=== PATIENT | male | born 1995 | race Caucasian/White ===

== ENCOUNTER 2018-09-15 18:04 | Emergency (ER) | payer OTHER, SELFPAY ==
[2018-09-15 18:10] VITALS: BP 144/74; PULSE 74; RESP 16; TEMP 37; O2SAT 100
--- NOTE | 2018-09-15 18:10 | ED.GENADUL_ITS ---
Discharge Plan Disposition Patient Disposition: HOME Condition: Good Discharge Details Chief Complaint: Orthopedic Clinical Impression: Chest wall pain Primary Care Provider: None,None ED Provider: Ruslan George Home Meds and New Rx's Prescriptions: No Action No Known Home Meds RF: 0 Discharge Instructions Instructions: Chest Wall Pain (ED) Additional Instructions: Your pain seems to be related to the pectoralis muscle and chest wall pain. Vital signs are good. Your lungs are clear. Suspect a few days of ibuprofen will help take care of the pain. You should follow-up with a primary care doctor in a couple weeks if it does not seem to be getting better. Care management will help you with getting a PCP. Return to the ED if you develop fever, shortness of breath, new or worsening pain. [facility] [[facility]] Medical Decision Making Patient with what appears to be chest wall pain. Pain is definitely worse with movement especially active movement involving the left shoulder. It is reproducible with palpation in the left upper chest toward the insertion of the pectoralis muscle into the shoulder. Lungs are clear. Oxygenation is 100%. He is only 23 and has no risk factors for cardiac disease. He is PERC negative. I do not feel that imaging, laboratory studies or workup is necessary as it definitely appears to be chest wall pain in nature. There are no associated symptoms with it. We will have him use ibuprofen over the next few days and see how he does. I will have care management help with obtaining primary care provider. Patient asked to return if he develops fever, shortness of breath, new or worsening pain, any other concerns. HPI General Mode of arrival: ambulatory . Date/Time Provider Initiated Documentation: 09/15/18 18:08 . Limitations to Documentation: no limitations . Information obtained by: patient . HPI Narrative: Patient presents to ED with left upper chest pain for the last couple of days. He has recovered from what sounds like left proximal bicep tendinitis just recently. The pain he is having now feels different but is in that same general location just more into the chest more than shoulder. He denies any new injury. Pain does not radiate anywhere. It is definitely worse with movement and somewhat with breathing. He does not feel short of breath. He has no fever. He has a chronic cough which is unchanged. He denies any neurologic symptomatology. He denies any rash. Related Data Home Medications Medication Instructions Recorded Confirmed Unknown [No Known Home Meds] 09/16/16 09/15/18 Allergies Allergy/AdvReac Type Severity Reaction Status Date / Time No Known Allergies Allergy Unverified 09/15/18 18:15 Review of Systems Constitutional Denies chills, Denies fever(s), Denies malaise and Denies weakness ENT Denies otalgia, Denies facial pain, Denies nasal congestion, Denies nasal discharge and Denies sinus pain Cardiovascular Reports chest pain, Denies diaphoresis, Denies syncope, Denies edema, Denies lightheadedness, Denies radiating jaw, neck or arm pain and Denies dyspnea Respiratory Denies chest congestion, Denies cough and Denies dyspnea Musculoskeletal Denies back pain, Denies myalgias and Denies numbness Integumentary/Breasts Denies rash Neurologic Denies syncope, Denies focal weakness, Denies numbness, Denies radicular pain and Denies weakness PFSH Social History Smoking and Tabacco status: Never Exam Const General: cooperative, comfortable and no acute distress Orientation: alert and oriented x3 [facility] Head: normocephalic and atraumatic Neck Neck: full ROM, trachea midline and supple Chest Chest: tenderness pectoral muscle (upper pectoral muscle up into shoulder insertion) on the left Resp Effort & Inspection: normal respiratory effort Auscultation: clear to auscultation bilaterally Cardio Rate: regular rate Rhythm: regular rhythm Heart Sounds: S1 normal and S2 normal Pulses: radial pulses present Neuro General: alert, oriented x3, no focal motor deficits and CN's II-XI intact bilaterally Cognition: normal cognition Speech: speech normal Gait: normal gait Sensory Exam: no sensory deficits noted Extrem General: normal exam except as noted Left upper extremity: shoulder/upper arm Details: tenderness (left upper pectoral muscle) and abnormal ROM Details: pain with active ROM and with range as follows (pretty much normal but with pain)
[2018-09-15] MEDS: Ibuprofen 600 MG TAB PO (18:20)
--- NOTE | 2018-09-16 08:32 | PDOC.ERCMPRO ---
Care Management Progress Note 09/16-Dr. George requested assistance with [facility] establishing primary care. No ED f/u needed. Ana Maria Pearl product demonstrator. Referral faxed to [facility] this am.
--- NOTE | 2018-09-16 08:33 | CMPROGNOTE_ITS ---
Care Management Progress Note 09/16-Dr. George requested assistance with [facility] establishing primary care. No ED f/u needed. Ana Maria Pearl secondary teacher. Referral faxed to [facility] this am.
== END 2018-09-15 18:30 | disposition home or self-care (01) ==
LOC: ER 18:31
PROVIDERS: Emergency Provider Emergency Medicine
DX: R07.81 Pleurodynia (principal)
CPT/HCPCS: 99282

== ENCOUNTER 2018-09-16 12:46 | Emergency (ER) | payer OTHER, SELFPAY ==
[2018-09-16 12:56] VITALS: BP 139/73; PULSE 59; RESP 16; TEMP 37.1; O2SAT 100
--- NOTE | 2018-09-16 13:13 | DI.RAD_ITS ---
SYMPTOMS/DIAGNOSIS: LT UPPER CHEST WALL PAIN PA AND LATERAL CHEST: The cardiac and mediastinal contours have a normal appearance. The lungs are well inflated and clear. No pneumothorax or rib fracture is seen. The thoracic spine and sternum appear intact. IMPRESSION: Negative chest x-ray.
[2018-09-16] MEDS: Ketorolac 30 MG/ML VIAL 15 MG IVP (13:15)
[2018-09-16] MEDS: Lidocaine 5% Patch 1 PATCH TP (13:15)
--- NOTE | 2018-09-16 13:17 | W.ED.GENAD ---
Discharge Plan Disposition Patient Disposition: HOME Condition: Good Discharge Details Chief Complaint: Chest Pain Clinical Impression: Muscle strain Primary Care Provider: None,None ED Provider: Jose Moran Home Meds and New Rx's Prescriptions: No Action No Known Home Meds RF: 0 Discharge Instructions Instructions: Muscle Strain (ED) Additional Instructions: Please take 800 mg of ibuprofen every 6 hours and 1000 mg of Tylenol every 6 hours. If you notice any worsening of your symptoms, or any new symptoms such as vomiting, diarrhea, fever, chills, shortness of breath, chest pain, numbness, weakness, or fainting , please return immediately to the emergency department for reevaluation. Please follow up with your primary care provider as soon as possible for reassessment and reevaluation. As always, it was a pleasure participating in your medical care today. Medical Decision Making This is a 23-year-old male who presents for evaluation of chest pain. He was seen and assessed here last night given a diagnosis of musculoskeletal chest pain at that time. The patient's pain continues, he is not taking his Tylenol or Motrin as directed. Physical exam demonstrates notable reproducible pain palpation of the pectoralis major minor muscles, no clinical evidence of a cardiac etiology on EKG or history. Symptoms are notably made worse with movement, the pain appears to be musculoskeletal. Limited portable bedside ultrasound demonstrates excellent cardiac contractility, no signs of pericardial effusion. I still feel that the patient signs and symptoms are consistent with musculoskeletal chest pain. We will give Toradol, Lidoderm patch, a chest x-ray to evaluate for any other atypical acute process, and I feel that the patient can be discharged home. With a benign EKG, no other significant abnormalities, feel that no additional workup is indicated at this time. 1:45 PM Chest x-ray has been reviewed and shows no evidence of acute process. EKG is benign. Bedside ultrasound shows no significant abnormality. With Lidoderm patch and Toradol the patient is feeling much better. I feel the signs and symptoms are clinically consistent with a musculoskeletal process and inconsistent with ACS, dissection, PE, pneumothorax, or severe rib fracture. With reassuring vital signs, benign appearing exam, I feel he can be safely discharged home with instructions for Tylenol Motrin I have extensively reviewed the treatment plan and discharge instructions with the patient and their family. I have addressed all patient concerns at this time. The patient and family was made aware of what symptoms to monitor for that would warrant a return to the emergency department. Discussed the plan with the patient and family, they demonstrate verbal understanding and agreement with our assessment and plan at this time. . EKG 12: 53 Rate 60, intervals normal, sinus rhythm, J-point elevation in V3 V4 and V5, all less than [address] depression. No T wave inversion. No S1, Q 3, T3, no epsilon wave, delta wave, or other significant abnormality. RSR prime in V1, normal EKG for age HPI General Date/Time Provider Initiated Documentation: 09/16/18 13:02. HPI Narrative: This is a 23-year-old male with past medical history of occasional marijuana use, who presents for evaluation of chest pain. The patient was here yesterday with complaint of chest pain that occurred while he was doing activity at work. His symptoms are worse with movement, particular worse with movement of his left anterior chest wall and arm. He was seen and evaluated here last night and physical exam at that time was clinically consistent with musculoskeletal issue. Today the patient presents again with same symptoms, he has not been taking his Tylenol or Motrin. He does state that it is the same as yesterday, but his girlfriend recommended he come in to get checked out. He denies any shortness of breath, pleuritic chest pain, vomiting, diarrhea, neck pain numbness tingling or weakness. Symptoms are not changed by leaning forward or lying back. He denies any family history of cardiac disease at a young age or sudden . Denies PE risk factors such as recent long car rides, immobilization, recent surgery, prior history of DVT or PE, family history of PE or DVT, morbid obesity, exogenous estrogen and smoking, hemoptysis, history of cancer. He denies any IV or illicit drug use. He does admit to occasional marijuana use. Related Data Home Medications Medication Instructions Recorded Confirmed Unknown [No Known Home Meds] 09/16/16 09/16/18 Allergies Allergy/AdvReac Type Severity Reaction Status Date / Time No Known Allergies Allergy Unverified 09/16/18 12:59 General Stated Complaint: Chest Pain TRICIA: 2 Review of Systems Review of Systems All systems reviewed & are unremarkable except as noted in HPI and below PFSH Social History Smoking and Tabacco status: Never Exam Narrative Exam Narrative: 1.Const: Well-nourished, Well-developed, appearing stated age 2.Eyes: PERRL, no conjunctival injection, and symmetrical lids. 3.ENT: Atraumatic external nose and ears. Moist MM. Neck: Symmetric, trachea midline, No thyromegaly. 4.CVS: +S1/S2, No murmurs or gallops. Peripheral pulses 2+ and equal in all extremities. Brisk capillary refill in all extremities. 5.RESP: Unlabored respiratory effort. Clear to auscultation bilaterally. No wheezes rales or rhonchi 6.GI: Soft, Nontender/Nondistended, No hepatosplenomegaly. No guarding or rebound. 7.MSK: Normocephalic/Atraumatic, Extremities w/o deformity. No cyanosis or clubbing, Normal movement of all extremities. Notable reproducibility of pain with palpation of pectoralis major minor muscle, pain and symptoms worsen with movement utilizing these muscles. No evidence of rib subluxation. 8.Skin: Warm, Dry. No rashes or lesions. 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 Sensation grossly intact, no focal neurologic deficits. 10.Psych: (AAO) x3. Appropriate mood and affect Course Vital Signs Temperature 37.1 C 09/16/18 12:56 Pulse 59 L 09/16/18 12:56 Respiratory Rate 16 09/16/18 12:56 Blood Pressure 139/73 09/16/18 12:56 Pulse Oximetry 100 09/16/18 12:56 Temperature 37.1 C 09/16/18 12:56 Temperature Source Skin 09/16/18 12:56 Pulse 59 L 09/16/18 12:56 Respiratory Rate 16 09/16/18 12:56 Respiratory Effort Non-Labored 09/16/18 12:56 Blood Pressure 139/73 09/16/18 12:56 Blood Pressure Position Supine 09/16/18 12:56 Pulse Oximetry 100 09/16/18 12:56 Oxygen Delivery Method Room Air 09/16/18 12:56 Oxygen Flow Rate 0 09/16/18 12:56 Pain Level 6 09/16/18 12:56
[2018-09-16 13:33] VITALS: RESP 16
[2018-09-16 13:35] VITALS: BP 120/73; PULSE 54; PULSE 56; RESP 16; O2SAT 100
[2018-09-16 13:36] VITALS: PULSE 57; RESP 15; O2SAT 100
[2018-09-16 13:40] VITALS: PULSE 56; RESP 17; O2SAT 99
[2018-09-16 14:00] VITALS: BP 120/73; PULSE 54; RESP 17; TEMP 37.1; O2SAT 99
== END 2018-09-16 14:02 | disposition home or self-care (01) ==
PROVIDERS: Emergency Provider Student in an Organized Health Care Education/Training Program
DX: M62.838 Other muscle spasm (principal)
CPT/HCPCS: 36415; 93005; 96374; 99285; 71046; 93010; J1885

== ENCOUNTER 2019-07-09 00:54 | Emergency (ER) | payer SELFPAY ==
[2019-07-09 00:58] VITALS: BP 141/74; PULSE 61; RESP 16; TEMP 36.2; O2SAT 100
--- NOTE | 2019-07-09 01:09 | ED.GENADUL_ITS ---
Discharge Plan Disposition Patient Disposition: HOME Condition: Stable Discharge Details Chief Complaint: Orthopedic Clinical Impression: Left wrist sprain Primary Care Provider: Oliver Renner ED Provider: Sanjay Herrera Home Meds and New Rx's Prescriptions: No Action No Known Home Meds RF: 0 Discharge Instructions Instructions: Wrist Sprain (ED) Medical Decision Making 23 yo male comes in with left wrist pain. HE states he has had left wrist soreness for a month or so and felt it was due to the heavy lifting at work. 3 days ago he slipped on ice from standing and landed on his left wrist, did not hit head or have loc. Denies headache, neck pain, chest pain, abd pain. Has pain on ulnar surface of left wrist without swelling and full rom and intact sensation and pulses and full rom of the hand. Suspect sprain vs contusion but given trauma will xray to eval for fx. No snuffbox tenderness so doubt scaphoid fx xray on my read shows no acute findings. Will place in universal wrist splint for comfort and advised to see pcp if still in pain in a week and return precautions given Differential Diagnosis Differential Diagnosis: sprain, tendonitis, fx Imaging Data Radiologic Study: Attestation: I personally reviewed and interpreted this imaging study as follows: Imaging: X-Ray My impression: no acute findings HPI General Mode of arrival: ambulatory . Date/Time Provider Initiated Documentation: 07/09/19 01:01 . Limitations to Documentation: no limitations . Information obtained by: patient . History of Present Illness 23 year old M presents to the emergency department with the chief complaint of left wrist pain, described as moderate, Quality is described as aching, and is locali zed to the left and upper extremity. Patient reports no radiation. Patient started experiencing this hour(s) (3) and it has been constant. Rest improves symptom(s), Patient notes no other symptoms.. Patient did receive the following treatments prior to arrival, none Related Data Home Medications Medication Instructions Recorded Confirmed Unknown [No Known Home Meds] 09/16/16 07/09/19 Allergies Allergy/AdvReac Type Severity Reaction Status Date / Time No Known Allergies Allergy Verified 07/09/19 01:02 General Stated Complaint: Orthopedic TRICIA: 4 Review of Systems All systems reviewed & are unremarkable except as noted in HPI and below Constitutional Constitutional: Denies chills and Denies fever(s) Cardiovascular Cardiovascular: Denies chest pain and Denies dyspnea Respiratory Respiratory: Denies cough and Denies dyspnea Gastrointestinal Gastrointestinal: Denies abdominal pain, Denies nausea and Denies vomiting Musculoskeletal Musculoskeletal: Denies joint swelling Integumentary/Breasts Skin/Breast: Denies rash PFSH Family History (Updated 11/09/18 @ 15:23 by Mary Chua RN) Mother Heart disease Maternal Grandfather Heart disease Diabetes Social History (Updated 11/09/18 @ 15:21 by Mary Chua RN) Smoking/Tobacco Use Status: Never Smokeless tobacco user: other Second Hand Exposure: Yes (mother smokes) Alcohol Intake: current Alcohol Intake frequency: a few times a month Alcohol type: beer Drug use: Occasionally Substance use type: marijuana Household members: family Education Level: high school current occupation: talking to [employer] Pets and animals: Yes Pets and animals: cat(s) and dog(s) Sexually active: Yes Do you think of yourself as: straight/heterosexual Current gender identity: male What type of physical activity do you participate in: other Details: bowling and physically active at work Ruth/Latter-Day: none Special ruth needs: No Seatbelt use: always Helmet use: Yes Helmet use: always Drive intox or ride w/intox sulky driver: No Water heater temp set <120 deg: Yes Working smoke detector in home: Yes Fire extinguisher in home: Yes Carbon monox detector in home: Yes Firearms in home: No Do you feel safe at home: Yes Do you feel safe in your relationship?: Yes Exam Const General: no acute distress Orientation: alert HENMT Head: normal to inspection Ears: external ears normal General nose exam: external nose normal Mouth: moist mucous membranes Eyes General: appearance normal, both eyes and all related structures Neck Neck: normal visual inspection Resp Effort & Inspection: normal respiratory effort and able to speak in complete sentences Cardio Rate: regular rate Skin General skin exam: no rashes or lesions noted Neuro General: alert and oriented x3 Extrem General: normal to inspection, full ROM and normal capillary refill Psych Mental Status: mental status grossly normal Course Vital Signs Vital signs: Vital Signs Temperature 36.2 C L 07/09/19 00:58 Pulse 61 07/09/19 00:58 Respiratory Rate 16 07/09/19 00:58 Blood Pressure 141/74 H 07/09/19 00:58 Pulse Oximetry 100 07/09/19 00:58 Temperature 36.2 C L 07/09/19 00:58 Temperature Source Temporal Artery Scan 07/09/19 00:58 Pulse 61 07/09/19 00:58 Respiratory Rate 16 07/09/19 00:58 Respiratory Effort 07/09/19 00:58 Blood Pressure 141/74 H 07/09/19 00:58 Blood Pressure Position Sitting 07/09/19 00:58 Pulse Oximetry 100 07/09/19 00:58 Oxygen Delivery Method Room Air 07/09/19 00:58 Oxygen Flow Rate 0 07/09/19 00:58 Pain Level 4 07/09/19 01:02
--- NOTE | 2019-07-09 01:12 | DI.RAD_ITS ---
EXAM: XR WRIST LT COMPLETE CLINICAL HISTORY: pain s/p fall. TECHNIQUE: 2D digital imaging was performed. COMPARISON: No exams were available for comparison FINDINGS: BONES: No acute fracture is present. No bony destructive lesion is seen. JOINTS: The carpal bones are normally aligned. SOFT TISSUE: Normal. IMPRESSION: Unremarkable radiographs of the left wrist.
--- NOTE | 2019-07-09 01:28 | DI.VRAD_ITS ---
PROCEDURE INFORMATION: Exam: XR Left Wrist Exam date and time: 07/09/2019 1:10 AM Age: 23 years old Clinical indication: Injury or trauma; Fall; Initial encounter; Blunt trauma (contusions or hematomas; Wrist; Left; Injury date: 07/08/2019; Injury details: Foosh on ice TECHNIQUE: Imaging protocol: XR Left wrist. Views: 3 or more views. COMPARISON: CR LEFT WRIST COMPLETE 09/16/2016 3:00 PM FINDINGS: Bones/joints: Normal. Soft tissues: Normal. IMPRESSION: No acute findings. Dictated and Authenticated by: Jak Quintero MD. Ordering:TED Grace MD
== END 2019-07-09 01:30 | disposition home or self-care (01) ==
PROVIDERS: Emergency Provider Emergency Medicine; PCP Family Medicine
DX: S63.302A Traumatic rupture of unspecified ligament of left wrist, initial encounter (principal); W00.0XXA Fall on same level due to ice and snow, initial encounter
CPT/HCPCS: 29125; 99283; 73110; L3908

== ENCOUNTER 2019-08-30 17:38 | Emergency (ER) | payer OTHER, SELFPAY ==
[2019-08-30 17:48] VITALS: BP 150/78; PULSE 74; TEMP 36.7; O2SAT 100
--- NOTE | 2019-08-30 18:07 | ED.GENADUL_ITS ---
Discharge Plan Disposition Patient Disposition: HOME Condition: Good Discharge Details Chief Complaint: Orthopedic Clinical Impression: Ankle contusion Primary Care Provider: Oliver Renner ED Provider: Yvrose Newton Home Meds and New Rx's Prescriptions: No Action No Known Home Meds RF: 0 Discharge Instructions Instructions: Contusion in Adults (ED) Additional Instructions: Encourage rest, ice, elevation. Tylenol and/or ibuprofen as needed for discomfort. Please follow-up with primary care in 1 to 2 weeks if not improving. If he develop new or worsening symptoms please seek care urgently once again. Please continue with brace will pain persist. Referrals: Oliver Renner DO [Primary Care Provider] - Medical Decision Making Patient is a pleasant 31-year-old male presenting today with chief complaint of left ankle pain. He reports his pain began approximately 1 week ago after a large hopper fell on the anterior aspect of his foot. He reports that the hopper was being supported by a forklift and slid off of the forklift landing on to the top of his boot. Patient was wearing a steel toe boot and states that this did cause damage to his shoe. States that the Hopper then slid backwards and hit the anterior aspect of his left ankle. Reports some discomfort initially but reports no pain until last night when he was bowling. Since that time, he has been having pain primarily over the medial and lateral aspect between the malleoli and the Achilles. He has no pain over the Achilles tendon, normal Valentin test. No pain with palpation or squeezing of the calcaneus. He is ligamentously intact. Normal foot exam. Patient does report that he had injury to the growth plate on the side and he was a child but otherwise no previous surgeries or injuries. FINDINGS: Bones/joints: Normal. Soft tissues: Normal. IMPRESSION: No acute findings. Discussed these findings with the patient. The area where he is having discomfort is not over. Suggestive of ligamentous injury. Advised likely marian stevens. Encourage rest, ice, elevation. Tylenol and ibuprofen as needed for discomfort. Encourage follow-up with primary care in the next 1 to 2 weeks if pain is not improving. Was given return precautions. All questions and concerns were addressed and is agreement this plan. Patient was fitted with a lace up ankle brace to help with discomfort. HPI General Mode of arrival: ambulatory . Date/Time Provider Initiated Documentation: 08/30/19 18:07 . Limitations to Documentation: no limitations . Information obtained by: patient, family and RN notes reviewed . History of Present Illness 23 year old M presents to the emergency department with the chief complaint of left ankle pain, described as moderate, with intensity rated at 6. Quality is described as aching, and is localized to the left and lower extremity. Patient reports no radiation. Patient started experiencing this week(s) (1) and it has been intermittent. Movement worsens symptoms (first noted pain last night while bowling) . Patient notes no other symptoms.. Patient did receive the following treatments prior to arrival, none Related Data Home Medications Medication Instructions Recorded Confirmed Unknown [No Known Home Meds] 09/16/16 08/30/19 Allergies Allergy/AdvReac Type Severity Reaction Status Date / Time No Known Allergies Allergy Verified 08/30/19 17:54 General Stated Complaint: Orthopedic TRICIA: 4 Review of Systems Constitutional Constitutional: Reports as per HPI, Denies chills, Denies fever(s), Denies headache(s) and Denies weakness ENT Ears, Nose, Mouth, and Throat: Denies headache(s) Cardiovascular Cardiovascular: Reports as per HPI Respiratory Respiratory: Reports as per HPI and Denies cough Musculoskeletal Musculoskeletal: Reports as per HPI and Denies tingling Integumentary/Breasts Skin/Breast: Reports as per HPI, Denies rash and Denies wounds Neurologic Neurologic: Reports as per HPI, Denies headache(s), Denies tingling, Denies paresthesias and Denies weakness PFSH Family History (Updated 11/09/18 @ 15:23 by Mary Chua RN) Mother Heart disease Maternal Grandfather Heart disease Diabetes Social History (Updated 11/09/18 @ 15:21 by Mary Chua RN) Smoking/Tobacco Use Status: Never Smokeless tobacco user: other Second Hand Exposure: Yes (mother smokes) Alcohol Intake: current Alcohol Intake frequency: a few times a month Alcohol type: beer Drug use: Occasionally Substance use type: marijuana Household members: family Education Level: high school current occupation: talking to [employer] Pets and animals: Yes Pets and animals: cat(s) and dog(s) Sexually active: Yes Do you think of yourself as: straight/heterosexual Current gender identity: male What type of physical activity do you participate in: other Details: bowling and physically active at work Ruth/Alevism: none Special ruth needs: No Seatbelt use: always Helmet use: Yes Helmet use: always Drive intox or ride w/intox uke driver: No Water heater temp set <120 deg: Yes Working smoke detector in home: Yes Fire extinguisher in home: Yes Carbon monox detector in home: Yes Firearms in home: No Do you feel safe at home: Yes Do you feel safe in your relationship?: Yes Exam Const General: cooperative, healthy appearing, comfortable, no acute distress, well developed and well groomed Nutritional Appearance: average body habitus and well nourished Orientation: alert and awake Resp Effort & Inspection: normal respiratory effort, able to speak in complete sentences and no respiratory distress Cardio Rate: regular rate Rhythm: regular rhythm Skin General skin exam: no rashes or lesions noted Lesions: no lesions Rashes: no rashes Trauma: no lacerations or abrasions Neuro General: alert and awake Cognition: normal cognition Speech: speech normal Gait: normal gait Motor: muscle tone normal throughout Sensory Exam: no sensory deficits noted Extrem General: normal to inspection, full ROM, normal capillary refill, no joint enlargement, no clubbing, cyanosis or edema, no pedal edema, no calf tenderness and normal gait Left lower extremity: normal to inspection, full ROM, normal capillary refill, no joint enlargement, knee Details: normal to inspection, lower leg Details: normal to inspection (no pain over proximal fibula), ankle Details: normal to inspection, tenderness, no edema and normal ROM; no swelling, no warmth, no abrasions, no lacerations, no ecchymosis, no crepitus, no foreign bodies, no penetrating wound and achilles tendon exam normal and foot Details: normal capillary refill, toes with normal ROM, no edema and vascular exam Details: dorsalis pedis pulse present, posterior tibial pulse present and normal capillar y refill; no tenderness, no unusual warmth, no edema, no lacerations, no ecchymosis and no crepitus Ankle/foot/toe images: 1. area of discomfort. No pain or deformity over Achilles,no pain over lateral malleolus. discomfort is elicited with palpation between these areas. No swelling, erythema, warmth, drainage. No notable trauma. No pain over the talus. Full ROM, ligamentously intact. Normal foot exam with 2+ distal pulses. No pain with squeeze of foot, no pain over proximal 5th metatarsal. Psych Appearance: grossly normal and well kempt Mental Status: mental status grossly normal Speech and Movement: speech and movement normal Course Vital Signs Vital signs: Vital Signs Temperature 36.7 C 08/30/19 17:48 Pulse 74 08/30/19 17:48 Blood Pressure 150/78 H 08/30/19 17:48 Pulse Oximetry 100 08/30/19 17:48 Temperature 36.7 C 08/30/19 17:48 Temperature Source Skin 08/30/19 17:48 Pulse 74 08/30/19 17:48 Respiratory Effort Non-Labored 08/30/19 17:54 Blood Pressure 150/78 H 08/30/19 17:48 Blood Pressure Position Sitting 08/30/19 17:48 Pulse Oximetry 100 08/30/19 17:48 Oxygen Delivery Method Room Air 08/30/19 17:48 Oxygen Flow Rate 0 08/30/19 17:48 Pain Level 6 08/30/19 17:48
--- NOTE | 2019-08-30 18:43 | DI.RAD_ITS ---
EXAM: XR ANKLE LT COMPLETE INDICATION: struck anteriorly, pain is posterior. COMPARISON: LEFT ANKLE COMPLETE from 02/10/2017 TECHNIQUE: 2D digital imaging was performed. FINDINGS: No fracture or ankle mortise widening is seen. No talar dome defect is visible. IMPRESSION: Negative left ankle.
--- NOTE | 2019-08-30 18:55 | DI.VRAD_ITS ---
PROCEDURE INFORMATION: Exam: XR Left Ankle Exam date and time: 08/30/2019 6:44 PM Age: 23 years old Clinical indication: Injury or trauma; Injury history: PT states wood rolled up on to ptsankle; Work related; Initial encounter; Sprain or strain; Left; Injury date: 08/30/2010 TECHNIQUE: Imaging protocol: XR Left ankle. Views: 3 or more views. COMPARISON: CR LEFT ANKLE COMPLETE 02/10/2017 3:42 PM FINDINGS: Bones/joints: Normal. Soft tissues: Normal. IMPRESSION: No acute findings. Dictated and Authenticated by: Jak Quintero MD. Ordering:NA Frances MD
[2019-08-30 19:18] VITALS: BP 150/78; PULSE 74; TEMP 36.7; O2SAT 100
== END 2019-08-30 19:15 | disposition home or self-care (01) ==
PROVIDERS: Emergency Provider Physician Assistant; PCP Family Medicine
DX: S90.02XA Contusion of left ankle, initial encounter (principal); W20.8XXA Other cause of strike by thrown, projected or falling object, initial encounter; Y99.0 Civilian activity done for income or pay
CPT/HCPCS: 29515; 99283; 73610; L1902

== ENCOUNTER 2019-11-12 11:57 | Emergency (ER) | payer OTHER, SELFPAY ==
[2019-11-12 12:03] VITALS: BP 129/83; PULSE 83; RESP 14; TEMP 37.3; O2SAT 100
--- NOTE | 2019-11-12 12:12 | ED.GENADUL_ITS ---
Discharge Plan Disposition Patient Disposition: HOME Condition: Improving Discharge Details Chief Complaint: Trauma Clinical Impression: Acute frontal sinusitis Primary Care Provider: Oliver Renner ED Provider: Marc Valdez Home Meds and New Rx's Prescriptions: New amoxicillin-pot clavulanate 875-125 mg tablet 1 tab PO BID 9 Days Qty: 18 RF: 0 Discharge Instructions Instructions: Sinusitis (ED), Syncope (ED) Additional Instructions: Home to rest today. Please take Augmentin as prescribed for its entire course. I recommend you take an [id number]-yugdtbd probiotic or live culture yogurt once daily during the middle of the day while on the antibiotic. Tylenol and/or ibuprofen as needed for pain. Salt water gargle and spit for your intraoral abrasion. Return to the emergency department for any acute concerns. Medical Decision Making 24-year-old male presents from home. He was seated, having a haircut, when he felt flushed and nauseated, he was then witnessed to have a syncopal event which he fell forward struck his face on the floor. There was no seizure-like activity. He had no prolonged loss of consciousness, no incontinence. He regained normal level of consciousness, EMS was contacted, patient was transported to the ER in improved condition. He complains of right upper gum pain. His exam is reassuring. He has an abrasion over the nasal bridge without evidence of laceration nor underlying significant bony facial injury. He has a abrasion to the gumline but no loose teeth or intraoral lacerations. Differential gnosis is broad including vasovagal induced syncope. Patient had IV access established, was referred for laboratories, screening chest x-ray, EKG, CT scan of the cervical spine, facial bones and head. Laboratories, EKG, chest x-ray are reassuring. CT does not reveal any acute injury. There is evidence of bilateral sphenoid, ethmoid, left frontal sinus disease. Given the patient's recent headache and low-grade fever along with physical exam findings of distended left tympanic membrane, I do feel he has left frontal sinusitis. I will place him on a course of antibiotics. He is stable and improving. Lab Data Lab results reviewed: Yes I reviewed the patient's lab results. Labs: Laboratory Results - last 24 hr 11/12/19 11/12/19 12:25 12:25 WBC 4.68 RBC 5.39 Hgb 16.3 Hct 46.4 MCV 86.1 MCH 30.2 MCHC 35.1 RDW 12.8 Plt Count 114 L MPV 10.3 Immature Gran % 0.2 Neutrophils % 68.8 Lymphocytes % 14.5 Monocytes % 15.6 Eosinophils % 0.0 Basophils % 0.9 Absolute Neutrophils 3.22 Absolute Lymphocytes 0.68 L Absolute Monocytes 0.73 H Absolute Eosinophils 0.00 Absolute Basophils 0.04 Sodium 136 Potassium 3.8 Chloride 101 Carbon Dioxide 28.4 Anion Gap 6.6 BUN 18 Creatinine 1.16 Estimated GFR/1.73 m2 >= 60.00 Glucose 99 Calcium 8.8 Magnesium 1.9 Total Bilirubin 0.5 AST 30 ALT 36 Alkaline Phosphatase 50 Troponin I < 0.05 Total Protein 8.3 H Albumin 4.0 ECG Data Attestation: I personally reviewed and interpreted this ECG (s) as follows: Interpretation: Normal sinus rhythm with a rate of 84, QRS is narrow, there is no ST segment elevation, QTc 390. HPI General Mode of arrival: EMS . Date/Time Provider Initiated Documentation: 11/12/19 12:17 . Limitations to Documentation: no limitations . Information obtained by: patient and EMS . History of Present Illness 24 year old M presents to the emergency department with the chief complaint of Syncope at home, described as moderate, and is localized to the mouth. Patient reports no radiation. Patient started experiencing this minute(s) and it has been now resolved. No relieving factors improve symptom(s), No exacerbating factors reported . Patient notes syncope; denies confusion, chest pain, headaches, nausea/vomiting, seizure and shortness of breath. Patient did receive the following treatments prior to arrival, none Related Data Home Medications Medication Instructions Recorded Confirmed amoxicillin-pot clavulanate 1 tab PO BID 9 Days #18 tab 11/12/19 Previous Rx's Medication Instructions Recorded amoxicillin-pot clavulanate 1 tab PO BID 9 Days #18 tab 11/12/19 Allergies Allergy/AdvReac Type Severity Reaction Status Date / Time No Known Allergies Allergy Verified 11/12/19 12:11 General Stated Complaint: Trauma TRICIA: 3 Review of Systems Narrative: Reports temperature of 100.4 and headache yesterday, both improved today. No chest pain, cough, shortness of breath. No headache today. No sinus pain or pressure. [facility] Family History (Updated 11/09/18 @ 15:23 by Mary Chua RN) Mother Heart disease Maternal Grandfather Heart disease Diabetes Social History Smoking/Tobacco Use Status: Never Smokeless tobacco user: other Second Hand Exposure: Yes (mother smokes) Alcohol Intake: current Alcohol Intake frequency: a few times a month Alcohol type: beer Drug use: Occasionally Substance use type: marijuana Household members: family Education Level: high school current occupation: talking to [employer] Pets and animals: Yes Pets and animals: cat(s) and dog(s) Sexually active: Yes Do you think of yourself as: straight/heterosexual Current gender identity: male What type of physical activity do you participate in: other Details: bowling and physically active at work Ruth/Sikh: none Special ruth needs: No Seatbelt use: always Helmet use: Yes Helmet use: always Drive intox or ride w/intox driver medic: No Water heater temp set <120 deg: Yes Working smoke detector in home: Yes Fire extinguisher in home: Yes Carbon monox detector in home: Yes Firearms in home: No Do you feel safe at home: Yes Do you feel safe in your relationship?: Yes Exam Narrative Exam Narrative: GEN: awake, alert, oriented 3. Pleasant, well groomed, interactive. HEAD: Normocephalic, atraumatic ENT: Mucous membranes moist, oropharynx with small approximately 3 to 4 mm abrasion to gum above right central incisor, no loose teeth. No other intraoral lacerations. Left tympanic membrane slightly distended and erythematous, External ear exam unremarkable. Abrasion to the nasal bridge, no facial bone instability, no facial anesthesia. EYES: PERRL, EOMI NECK: Full ROM, no SHOAIB, no menigismus CHEST/RESP: Nontender, clear to auscultation bilateral, no wheeze/rhonchi/rales CARDIOVASCULAR: RRR, no murmur, rub nabeel. 2+ Rad pulse bilateral ABDOMEN: Soft, nontender, no mass. +Bowel sounds EXT: Full ROM, no edema, no rash Neuro: Grossly normal neurologic exam, conversant, interactive. Psych: Speech fluent, thoughts congruent, affect normal Course Vital Signs Vital signs: Vital Signs Temperature 37.3 C 11/12/19 12:03 Pulse 83 11/12/19 12:03 Respiratory Rate 14 11/12/19 12:03 Blood Pressure 129/83 11/12/19 12:03 Pulse Oximetry 100 11/12/19 12:03 Temperature 37.3 C 11/12/19 12:03 Temperature Source Oral 11/12/19 12:03 Pulse 83 11/12/19 12:03 Respiratory Rate 14 11/12/19 12:03 Respiratory Effort Non-Labored 11/12/19 12:10 Blood Pressure 129/83 11/12/19 12:03 Blood Pressure Position Supine 11/12/19 12:03 Pulse Oximetry 100 11/12/19 12:03 Oxygen Delivery Method Room Air 11/12/19 12:03 Oxygen Flow Rate 0 11/12/19 12:03 Pain Level 3 11/12/19 12:03
--- NOTE | 2019-11-12 12:20 | DI.CT_ITS ---
EXAM: CT HEAD CERV SPINE FACIAL WO CLINICAL HISTORY: syncope, facial trauma, pain. TECHNIQUE: Imaging Protocol: Axial computed tomography images with coronal and sagittal reformatted images were created and reviewed COMPARISON: No exams were available for comparison FINDINGS: CT Head: Ventricles and Extra axial spaces: Normal in size and morphology for the patient's age. Hemorrhage: None. Cerebral parenchyma: Normal. Midline shift: None. Brainstem/Cerebellum: Normal. Calvarium: Normal. Visualized Paranasal sinuses/Mastoids: There is opacification of several ethmoid air cells. There ar e no mucous retention cysts or polyps in the sphenoid sinuses. There is mucosal thickening in the sp henoid sinus. The mastoid air cells are well pneumatized. Soft Tissues: Unremarkable. CT Face: Facial Bones: No definite fracture is noted in facial bones. The nasal septum deviates to the left. Sinuses and Mastoids: There is opacification of several ethmoid air cells and the sphenoid sinuses. Mucous retention cysts or polyps are seen in the sphenoid sinuses. Globes, extraocular muscles, optic nerves and retrobulbar fat: Normal. Upper aerodigestive tract: Normal. Mandible and bilateral temporomandibular joints: Normal. Soft tissues: Normal. CT Cervical Spine: Bones: No acute fracture or subluxation. There is straightening of the normal cervical lordosis is ma y be due to muscle spasm or patient positioning. Soft Tissues: Unremarkable. Lung Apices: Clear. IMPRESSION: 1. No acute intracranial process. 2. No acute fracture or subluxation in the cervical spine. 3. No acute facial fracture. RADIATION DOSE DELIVERED: Total DLP DATA REPOSITORY: All CT scans at this facility are submitted to the National Radiology Data Registry (NRDR) Dose Index Registry (DIR) with the [employer] (ACR). RADIATION OPTIMIZATION: All CT scans at this facility use at least one of these dose optimization te chniques: automated exposure control; mA and/or kV adjustment per patient size (includes targeted exa ms where dose is matched to clinical indication); or iterative reconstruction.
[2019-11-12] MEDS: Normal Saline Flush 10 ML SYR IVP (12:30)
[2019-11-12] MEDS: Lactated Ringers 1,000 ML 1000 ML IV (12:30)
[2019-11-12 12:34] LABS: Abs Immature Grans 0.01 k/cumm (0.0-0.09); Absolute Basophil Count 0.04 k/cumm (0.0-0.2); Absolute Lymphocyte Count 0.68 k/cumm (1.2-3.4); Absolute Monocyte Count 0.73 k/cumm (0.11-0.7); Absolute Neutrophil Count 3.22 k/cumm (1.2-6.7); Basophils % 0.9; HCT 46.4 % (40.0-50.0); HGB 16.3 g/dL (13.5-17.5); Immature Grans % 0.2 %; Lymphocytes % 14.5; Mean Corp. HGB Concentration 35.1 g/dL (32.0-36.0); Mean Corpuscular Hemoglobin 30.2 pg (27.0-33.0); Mean Corpuscular Volume 86.1 fL (80-95); Mean Platelet Volume 10.3 fL (8.0-11.0); Monocytes % 15.6; Neutrophils % 68.8; Platelet Count 114 x1000/uL (130-400); RBC 5.39 m/cumm (4.50-6.00); RBC Distribution Width 12.8 % (11.8-14.1); White Blood Cell Count 4.68 k/cumm (4.4-10.8)
--- NOTE | 2019-11-12 12:45 | DI.RAD_ITS ---
EXAM: XR CHEST 2V PA LATERAL CLINICAL HISTORY: Syncope TECHNIQUE: 2D digital imaging was performed. COMPARISON: XR CHEST 2V PA LATERAL from 09/16/2018 FINDINGS: MEDIASTINUM: Normal. HEART: Normal. PULMONARY VASCULATURE: Normal. LUNGS: Clear. PLEURAL SPACE: No pleural effusion or pneumothorax. BONE:Normal. OTHER FINDINGS:Normal. IMPRESSION: No acute pulmonary findings. DATA REPOSITORY: RADIATION DOSE DELIVERED:
[2019-11-12 12:50] LABS: ALT 36 U/L (16-63); AST 30 U/L (15-37); Alkaline Phosphatase 50 U/L (46-116); Anion Gap 6.6 mmol/L (3-11); BUN 18 mg/dL (7-18); Bilirubin, Total 0.5 mg/dL (0.2-1.0); CO2 28.4 mmol/L (21.0-32.0); CREATININE 1.16 mg/dL (0.70-1.30); Calcium 8.8 mg/dL (8.5-10.1); Chloride 101 mmol/L (98-107); Glucose 99 mg/dL (74-106); Magnesium 1.9 mg/dL (1.8-2.4); Potassium 3.8 mmol/L (3.5-5.1); Sodium 136 mmol/L (136-145); Total Protein 8.3 g/dL (6.4-8.2); Troponin I < 0.05 ng/Ml (<0.06)
--- NOTE | 2019-11-12 12:52 | DI.VRAD_ITS ---
PROCEDURE INFORMATION: Exam: XR Chest, 2 Views Exam date and time: 11/12/2019 12:46 PM Age: 24 years old Clinical indication: Injury or trauma; Fall; Initial encounter; Blunt trauma (contusions or hematomas) TECHNIQUE: Imaging protocol: XR of the chest Views: 2 views. COMPARISON: No relevant prior studies available. FINDINGS: The lung govea are clear bilaterally. No focal pulmonary consolidation is present. The cardiac silhouette is within normal limits. The costophrenic angles are sharp. The bony structures appear unremarkable. IMPRESSION: No evidence of acute cardiopulmonary disease. Dictated and Authenticated by: Avelino Quiroz MD. Ordering:EMILE Tran MD
--- NOTE | 2019-11-12 13:09 | DI.VRAD_ITS ---
PROCEDURE INFORMATION: Exam: CT Head Without Contrast Exam date and time: 11/12/2019 12:37 PM Age: 24 years old Clinical indication: Injury or trauma; Fall; Initial encounter; Blunt trauma (contusions or hematomas); Cheek bone; Not specified TECHNIQUE: Imaging protocol: Computed tomography of the head without contrast. COMPARISON: No relevant prior studies available. FINDINGS: Brain: No intracranial bleed, mass mass affect or shift. Parenchyma sulci and gyri are age appropriate. No significant white matter disease. No thrombus sign or focal edema to suggest acute infarct. Ventricles: Normal ventricular size. No intraventricular hemorrhage. Bones/joints: Deviated nasal septum. Sinuses: Bilateral sphenoid, ethmoid, and left frontal sinus disease and or polyps. Mastoid air cells: No fluid in mastoid air cells. High riding jugular bulbs. Orbits: Normal optic globe shapes. No intraorbital gas or fluid. Soft tissues: No scalp soft tissue radiopaque foreign body or gas collection. IMPRESSION: Negative CT Head for acute intracranial process. PROCEDURE INFORMATION: Exam: CT Maxillofacial Without Contrast Exam date and time: 11/12/2019 12:37 PM Age: 24 years old Clinical indication: Injury or trauma; Fall; Initial encounter; Blunt trauma (contusions or hematomas); Cheek bone; Not specified TECHNIQUE: Imaging protocol: Computed tomography images of the face without contrast. COMPARISON: No relevant prior studies available. FINDINGS: Orbits: Orbits are normal. Globes are unremarkable. Bones/joints: Deviated nasal septum with bony spurring. Sinuses: Bilateral sphenoid, maxillary, and left frontal sinus disease and or polyps. Soft tissues: Unremarkable. IMPRESSION: 1. Bilateral sphenoid, bilateral ethmoid, and left frontal sinus disease and or polyps. 2. No orbital or sinus wall fractures. PROCEDURE INFORMATION: Exam: CT Cervical Spine Without Contrast Exam date and time: 11/12/2019 12:37 PM Age: 24 years old Clinical indication: Injury or trauma; Fall; Initial encounter; Blunt trauma (contusions or hematomas); Cheek bone; Not specified TECHNIQUE: Imaging protocol: Computed tomography images of the cervical spine without contrast. COMPARISON: No relevant prior studies available. FINDINGS: Vertebrae: Nonspecific cervical spine straightening. 7 cervical vertebral bodies with normal heights. No cervical spine fracture. No subluxation. C2-C3: No disc herniation. No spinal canal stenosis. No neural foraminal narrowing. C3-C4: No disc herniation. No spinal canal stenosis. No neural foraminal narrowing. C4-C5: No disc herniation. No spinal canal stenosis. No neural foraminal narrowing. C5-C6: No disc herniation. No spinal canal stenosis. No neural foraminal narrowing. C6-C7: No disc herniation. No spinal canal stenosis. No neural foraminal narrowing. C7-T1: No disc herniation. No spinal canal stenosis. No neural foraminal narrowing. Soft tissues: Unremarkable. Lymph nodes: Indeterminant cervical lymph nodes. Lungs: Lung apices are normal. IMPRESSION: 1. No cervical spine fracture. No subluxation. 2. Nonspecific cervical spine straightening. 3. Nonspecific cervical lymph nodes. Dictated and Authenticated by: Oliver Miranda MD. Ordering:EMILE Tran MD
[2019-11-12] MEDS: Amox. 875/Clav. 125, 2 TABS/BTL 1 TAB PO (13:29)
[2019-11-12 13:36] VITALS: BP 120/61; PULSE 97; O2SAT 98
== END 2019-11-12 13:35 | disposition home or self-care (01) ==
LOC: ER 13:30
PROVIDERS: Emergency Provider Emergency Medicine; PCP Family Medicine
DX: J01.10 Acute frontal sinusitis, unspecified (principal)
CPT/HCPCS: 80053; 93005; 96360; 99285; 70450; 70486; 71046; 72125; 83735; 84484; 85025; 93010; 99284

== ENCOUNTER 2019-11-20 11:25 | Emergency (ER) | payer OTHER, SELFPAY ==
[2019-11-20 11:34] VITALS: BP 143/86; PULSE 67; RESP 16; TEMP 36.6; O2SAT 99
--- NOTE | 2019-11-20 11:37 | ED.GENADUL_ITS ---
Discharge Plan Disposition Patient Disposition: HOME Condition: Improving Discharge Details Chief Complaint: RashLesion Clinical Impression: Adverse drug reaction Primary Care Provider: Oliver Renner ED Provider: Marc Valdez Home Meds and New Rx's Prescriptions: New prednisone 20 mg tablet 40 mg PO DAILY 3 Days Qty: 6 RF: 0 Discontinued amoxicillin-pot clavulanate 875-125 mg tablet 1 tab PO BID 9 Days Qty: 18 RF: 0 Discharge Instructions Instructions: Adverse Drug Reaction (ED) Additional Instructions: Small, frequent sips of fluids to maintain hydration today. Please take prednisone as prescribed. You should consider yourself intolerant/mildly allergic to Augmentin which is a member of the penicillin family. Return if you develop difficulty breathing, difficulty swallowing, change to voice, or any other acute concern. Medical Decision Making 24-year-old male known to me from visit of November 11 when he had syncope with headache and resultant images revealed sinus infection for which she was prescribed Augmentin. This morning on day 9 of treatment he developed a maculopapular blanching rash without other symptoms. Most suspicious for a drug reaction. I will treat him with a small burst of oral prednisone. He is to consider himself allergic to Augmentin. Do not feel further antibiotics are indicated. He stable for discharge to home. HPI General Mode of arrival: ambulatory . Date/Time Provider Initiated Documentation: 11/20/19 11:26 . Limitations to Documentation: no limitations . Information obtained by: patient . History of Present Illness 24 year old M presents to the emergency department with the chief complaint of Rash on legs and arms beginning today, described as mild, Quality is described as constant, and is localized to the left, right, upper extremity and lower extremity. Patient reports no radiation. Patient started experiencing this hour(s) and it has been constant. No relieving factors improve symptom(s), No exacerbating factors reported . Patient notes denies chest pain, cough, loss of appetite, shortness of breath and syncope. Patient did receive the following treatments prior to arrival, none Related Data Home Medications Medication Instructions Recorded Confirmed prednisone 40 mg PO DAILY 3 Days #6 tab 11/20/19 Previous Rx's Medication Instructions Recorded prednisone 40 mg PO DAILY 3 Days #6 tab 11/20/19 Allergies Allergy/AdvReac Type Severity Reaction Status Date / Time amoxicillin [From Augmentin] Allergy Skin Rash Unverified 11/20/19 11:36 clavulanic acid Allergy Skin Rash Unverified 11/20/19 11:36 [From Augmentin] General TRICIA: 3 Review of Systems Narrative: On Augmentin since last seen by me on November 11 for sinus infection. No persistent headache, patient is been feeling well. No travel, no known sick contacts, no fevers. Sick systems reviewed and otherwise negative PFSH Family History (Updated 11/09/18 @ 15:23 by Mary Chua RN) Mother Heart disease Maternal Grandfather Heart disease Diabetes Social History Smoking/Tobacco Use Status: Never Smokeless tobacco user: other Second Hand Exposure: Yes (mother smokes) Alcohol Intake: never Drug use: Occasionally Substance use type: marijuana Household members: family Education Level: high school current occupation: talking to [employer] Pets and animals: Yes Pets and animals: cat(s) and dog(s) Sexually active: Yes Do you think of yourself as: straight/heterosexual Current gender identity: male What type of physical activity do you participate in: other Details: bowling and physically active at work Ruth/Sabianism: none Special ruth needs: No Seatbelt use: always Helmet use: Yes Helmet use: always Drive 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 Pleasant, well groomed, interactive. HEAD: Normocephalic, atraumatic ENT: Mucous membranes moist, oropharynx unremarkable without intraoral lesions, tympanic membrane is clear without erythema, external ear exam unremarkable EYES: PERRL, EOMI NECK: Full ROM, no SHOAIB, no menigismus CHEST/RESP: Nontender, clear to auscultation bilateral, no wheeze/rhonchi/rales CARDIOVASCULAR: RRR, no murmur, rub nabeel. 2+ Rad pulse bilateral EXT: Full ROM, no edema, blanching, erythematous, maculopapular rash present on upper and lower extremity. No intraoral lesions. Neuro: Grossly normal neurologic exam, conversant, interactive. Psych: Speech fluent, thoughts congruent, affect normal
[2019-11-20] MEDS: predniSONE 20 MG TAB 40 MG PO (11:41)
== END 2019-11-20 11:44 | disposition home or self-care (01) ==
PROVIDERS: Emergency Provider Emergency Medicine; PCP Family Medicine
DX: R21 Rash and other nonspecific skin eruption (principal); T36.0X5A Adverse effect of penicillins, initial encounter
CPT/HCPCS: 99283; J7512

== ENCOUNTER 2020-09-01 16:13 | Emergency (ER) | payer BC, SELFPAY ==
--- NOTE | 2020-09-01 16:15 | DI.RAD_ITS ---
EXAM: XR HAND RT COMPLETE CLINICAL HISTORY: fall injury, direct blow. TECHNIQUE: 2D digital imaging was performed. COMPARISON: No exams were available for comparison FINDINGS: There is no evidence of acute fracture nor dislocation. No radiopaque foreign body. Small cyst is n oted in the head of the thumb metacarpal. IMPRESSION: DATA REPOSITORY: RADIATION DOSE DELIVERED:
[2020-09-01 16:20] VITALS: BP 134/79; PULSE 85; RESP 18; TEMP 36.6; O2SAT 94
--- NOTE | 2020-09-01 16:29 | ED.GENADUL_ITS ---
Discharge Plan Disposition Patient Disposition: HOME Condition: Stable Discharge Details Chief Complaint: Orthopedic Clinical Impression: Contusion of hand Primary Care Provider: Oliver Renner ED Provider: Segun Becker Home Meds and New Rx's Prescriptions: No Action No Known Home Meds RF: 0 Discharge Instructions Instructions: Contusion in Adults (ED) Additional Instructions: X-ray is unremarkable. [id number] Tylenol and/or Motrin as directed for discomfort. Gentle stretching as tolerated. Cool compresses every 2 hours for 20 minutes. Please watch for new or worsening symptoms and return to the ER for any concerns. Medical Decision Making 24-year-old gentleman, [id number], presents for right hand injury that occurred yesterday. Denies any other injury. Reports the pain is better today than it was yesterday evening without taking any [id number] medication. Clinically this appears to be contusion. Will obtain x-ray to rule any bony involvement. X-ray of the right hand read by radiology as negative. Discussed x-ray findings with patient. Patient is relieved and has no additional questions or concerns. He declines a splint. Medical Records Medical records reviewed: Yes I reviewed the patient's medical records. HPI General Mode of arrival: ambulatory . Date/Time Provider Initiated Documentation: 09/01/20 16:15 . Limitations to Documentation: no limitations . Information obtained by: patient . HPI Narrative: This is a 24-year-old gentleman, denies any significant past medical history. Patient is right-hand dominant. He reports yesterday he slipped, did not fall, but in the process of catching himself he struck his right hand. He reports pain over the third, fourth, fifth knuckle, worse over the fifth knuckle. Pain yesterday was moderate, today it is mild. Worse with movement. Denies any other injury. Denies numbness, tingling, weakness. Denies break in the skin. Related Data Home Medications Medication Instructions Recorded Confirmed Unknown [No Known Home Meds] 09/01/20 09/01/20 Allergies Allergy/AdvReac Type Severity Reaction Status Date / Time amoxicillin [From Augmentin] Allergy Skin Rash Unverified 09/01/20 16:25 clavulanic acid Allergy Skin Rash Unverified 09/01/20 16:25 [From Augmentin] General Stated Complaint: Orthopedic TRICIA: 4 Review of Systems Musculoskeletal Musculoskeletal: Denies arthralgias, Denies numbness and Denies tingling Integumentary/Breasts Skin/Breast: Denies erythema Neurologic Neurologic: Denies numbness and Denies tingling PFSH Family History Mother Heart disease Maternal Grandfather Heart disease Diabetes Social History Smoking/Tobacco Use Status: Never Smokeless tobacco user: other Second Hand Exposure: Yes (mother smokes) Smoking risk assessment performed?: Yes Alcohol Intake: current Alcohol Intake frequency: holidays/special occasions only Drug use: Occasionally Substance use type: marijuana Household members: family Education Level: high school current occupation: talking to [employer] Pets and animals: Yes Pets and animals: cat(s) and dog(s) Sexually active: Yes Do you think of yourself as: straight/heterosexual Current gender identity: male What type of physical activity do you participate in: other Details: bowling and physically active at work Ruth/Restorationism: none Special ruth needs: No Seatbelt use: always Helmet use: Yes Helmet use: always Drive intox or ride w/intox batch mixing truck driver: No Water heater temp set <120 deg: Yes Working smoke detector in home: Yes Fire extinguisher in home: Yes Carbon monox detector in home: Yes Firearms in home: No Do you feel safe at home: Yes Do you feel safe in your relationship?: Yes Exam Const General: cooperative, healthy appearing, comfortable and no acute distress Orientation: alert and awake [facility] Head: normal to inspection, normocephalic and atraumatic Eyes Conjunctivae: conjunctivae normal Sclera: sclerae normal Neck Neck: normal visual inspection, trachea midline and supple Resp Effort & Inspection: normal respiratory effort and able to speak in complete sentences Cardio Rate: regular rate Rhythm: regular rhythm Skin General skin exam: no rashes or lesions noted Neuro General: patient alert, patient awake, moves all extremities and no focal motor deficits Cognition: normal cognition Speech: speech normal Gait: normal gait Motor: muscle tone normal throughout Sensory Exam: no sensory deficits noted Extrem General: normal to inspection, full ROM and capillary refill normal Right upper extremity: full ROM, normal capillary refill, wrist Details: normal to inspection, normal ROM, normal vascular exam and radial pulse present; no tenderness, no swelling and no deformity and hand Details: normal to inspection, normal capillary refill, neuromotor exam normal, neurosensory exam normal, tendon exam normal, tenderness and normal ROM of fingers Hand/finger images: 1. Diffuse mild discomfort. No swelling, ecchymosis, deformity. Skin is intact. Neuro, vascular, tendon intact Psych Appearance: grossly normal Mental Status: mental status grossly normal Course Vital Signs Vital signs: Vital Signs Temperature 36.6 C 09/01/20 16:20 Pulse 85 09/01/20 16:20 Respiratory Rate 18 09/01/20 16:20 Blood Pressure 134/79 09/01/20 16:20 Pulse Oximetry 94 09/01/20 16:20 Temperature 36.6 C 09/01/20 16:20 Temperature Source Temporal Artery Scan 09/01/20 16:20 Pulse 85 09/01/20 16:20 Respiratory Rate 18 09/01/20 16:20 Respiratory Effort Non-Labored 09/01/20 16:26 Blood Pressure 134/79 09/01/20 16:20 Blood Pressure Position Sitting 09/01/20 16:20 Pulse Oximetry 94 09/01/20 16:20 Oxygen Delivery Method Room Air 09/01/20 16:20 Oxygen Flow Rate 0 09/01/20 16:20 Pain Level 4 09/01/20 16:20
--- NOTE | 2020-09-01 17:26 | DI.VRAD_ITS ---
PROCEDURE INFORMATION: Exam: XR Right Hand Exam date and time: 09/01/2020 5:01 PM Age: 24 years old Clinical indication: Other: Fall injury, direct blow TECHNIQUE: Imaging protocol: XR Right hand. Views: 3 or more views. COMPARISON: No relevant prior studies available. FINDINGS: Bones/joints: Normal. Soft tissues: Normal. IMPRESSION: No acute findings. Dictated and Authenticated by: Demetrius Carmen MD. Ordering:EKATERINA Cast MD
[2020-09-01 18:16] VITALS: BP 134/79; PULSE 85; RESP 18; TEMP 36.6; O2SAT 94
== END 2020-09-01 18:20 | disposition home or self-care (01) ==
PROVIDERS: Emergency Provider Physician Assistant; PCP Family Medicine
DX: S60.221A Contusion of right hand, initial encounter (principal); W22.09XA Striking against other stationary object, initial encounter
CPT/HCPCS: 99283; 73130

== ENCOUNTER 2020-10-22 23:31 | Emergency (ER) | payer BC, SELFPAY ==
--- NOTE | 2020-10-22 23:30 | DI.CT_ITS ---
EXAM: CT CHEST WO CLINICAL HISTORY: right clavicle and chest pain, ?fracture. TECHNIQUE: Imaging Protocol: Axial CT angiography was performed with multi-slice acquisition and mu lti-planar and/or 3D reconstructions. CONTRAST MATERIAL: Intravenous: Omnipaque 350 Contrast volume:structured data in ml COMPARISON: No exams were available for comparison FINDINGS: CT examination of the chest was performed without contrast administration. There is a comminuted moderately displaced right clavicular fracture involving midportion of clavicle . There are fractures of right 3rd through 5th ribs posteriorly and laterally. The lungs are predominantly clear except for scattered areas of ground-glass opacity on the right con sistent with pulmonary contusion.. No pleural effusion. Tracheobronchial tree appears intact. No gross mediastinal hematoma or vascular injury identified by noncontrast criteria. No pericardial effusion. No mediastinal or hilar adenopathy. Images obtained through the upper abdomen show unremarkable appearance of the visualized portions of the liver, spleen, pancreas, adrenals, and kidneys. IMPRESSION: Right clavicular fracture and right 3rd through 5th rib fractures. Are associated scattered right aaron ng pulmonary contusions. No evidence of pneumothorax or hemothorax. RADIATION DOSE DELIVERED: 608.81mGy.cm Total DLP 608.81mGy.cm Total DLP DATA REPOSITORY: All CT scans at this facility are submitted to the National Radiology Data Registry (NRDR) Dose Index Registry (DIR) with the [employer] (ACR). RADIATION OPTIMIZATION: All CT scans at this facility use at least one of these dose optimization te chniques: automated exposure control; mA and/or kV adjustment per patient size (includes targeted exa ms where dose is matched to clinical indication); or iterative reconstruction.
--- NOTE | 2020-10-22 23:30 | DI.CT_ITS ---
EXAM: CT HEAD CERVICAL SPINE WO COMPARISON: CT CT HEAD CERV SPINE FACIAL WO from 11/12/2019 CR,XR XR CLAVICLE RT from 10/23/2020 FINDINGS: CT examination of the cervical spine was performed without contrast administration. Right clavicular fracture noted. There is no evidence of acute cervical spine fracture or dislocation. Intervertebral disc spaces are well maintained. Tracheolaryngeal structures appear intact. No cervical mass or adenopathy. Noncontrast cranial CT was performed. Ventricular system is normal in appearance. No evidence of acute intracranial hemorrhage, mass effect, or midline shift. No calvarial fracture. The orbital and temporal bone structures appear intact. Visualized mastoid air cells are clear. Mild chronic sinus disease involving ethmoid sphenoid and fr ontal sinuses.. IMPRESSION: No evidence of acute cervical spine injury. No evidence of acute intracranial injury. RADIATION DOSE DELIVERED: 1,306.23mGy.cm Total DLP 1,306.23mGy.cm Total DLP DATA REPOSITORY: All CT scans at this facility are submitted to the National Radiology Data Registry (NRDR) Dose Index Registry (DIR) with the [employer] (ACR). RADIATION OPTIMIZATION: All CT scans at this facility use at least one of these dose optimization te chniques: automated exposure control; mA and/or kV adjustment per patient size (includes targeted exa ms where dose is matched to clinical indication); or iterative reconstruction.
[2020-10-22 23:32] VITALS: BP 136/66; PULSE 98; RESP 16; TEMP 36.6; O2SAT 98
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
--- NOTE | 2020-10-22 23:42 | NUR.NOTE ---
Nursing Note: ice pack placed right clavicle
[2020-10-22] MEDS: Acetaminophen 500 MG TAB 1000 MG PO (23:48)
[2020-10-23] VITALS (15 sets, daily range): BP systolic 95–134; BP diastolic 68–70; PULSE 67–117; RESP 12–26; O2SAT 96–99
--- NOTE | 2020-10-23 00:15 | DI.RAD_ITS ---
EXAM: XR CLAVICLE RT CLINICAL HISTORY: pain, ?fracture TECHNIQUE: COMPARISON: No exams were available for comparison FINDINGS: Two views were obtained and show comminuted moderately displaced right midclavicular fracture as note d on today's CT. Rib fractures were identified by CT but are not evident on these films. IMPRESSION: RADIATION DOSE DELIVERED: Total DLP
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
[2020-10-23] MEDS: Ibuprofen 600 MG TAB PO (00:34)
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
--- NOTE | 2020-10-23 01:21 | NUR.NOTE ---
Nursing Note: pt reports I'm feeling better but not ready to stand up yet. Pt remains on full cardiac monitoring. HOB elevated, rails x 2. Mother remains at bedside.
== END 2020-10-23 02:00 | disposition home or self-care (01) ==
LOC: ER 10-23 01:34
PROVIDERS: Emergency Provider Emergency Medicine; PCP Family Medicine
DX: S42.021A Displaced fracture of shaft of right clavicle, initial encounter for closed fracture (principal); S22.41XA Multiple fractures of ribs, right side, initial encounter for closed fracture; S09.8XXA Other specified injuries of head, initial encounter; S27.321A Contusion of lung, unilateral, initial encounter; M54.2 Cervicalgia; V47.5XXA Car driver injured in collision with fixed or stationary object in traffic accident, initial encounter
CPT/HCPCS: 23500; 71250; 99285; 70450; 72125; 73000; 99281

== ENCOUNTER 2020-10-31 08:49 | Outpatient (CLI) | payer BC, SELFPAY ==
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
== END 2020-10-31 08:50 | disposition home or self-care (01) ==
LOC: DIORS 08:49
PROVIDERS: PCP Family Medicine; Referring Provider Family Medicine; Visit Provider Physician Assistant
DX: S42.021A Displaced fracture of shaft of right clavicle, initial encounter for closed fracture (principal)
CPT/HCPCS: 73000

== ENCOUNTER 2020-11-07 08:33 | Outpatient (CLI) | payer BC, SELFPAY ==
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
== END 2020-11-07 08:34 | disposition home or self-care (01) ==
LOC: DIORS 08:33
PROVIDERS: PCP Family Medicine; Referring Provider Family Medicine; Visit Provider Physician Assistant
DX: S42.021D Displaced fracture of shaft of right clavicle, subsequent encounter for fracture with routine healing (principal)
CPT/HCPCS: 73000

== ENCOUNTER 2020-12-12 08:32 | Outpatient (CLI) | payer BC, SELFPAY ==
--- NOTE | 2020-12-12 08:15 | DI.RAD_ITS ---
Exam(s) XR CLAVICLE RT EXAM: XR CLAVICLE RT CLINICAL HISTORY: f/u. TECHNIQUE: 2D digital imaging was performed. COMPARISON: CR XR CLAVICLE RT from 11/07/2020 FINDINGS: Again noted is the comminuted overriding fracture at the midshaft of the right clavicle. Appearance is unchanged from 11/07/2020. No obvious callus formation. AC joint is not distracted. IMPRESSION: DATA REPOSITORY: RADIATION DOSE DELIVERED:
== END 2020-12-12 08:33 | disposition home or self-care (01) ==
LOC: DIORS 08:33
PROVIDERS: PCP Family Medicine; Referring Provider Family Medicine; Visit Provider Student in an Organized Health Care Education/Training Program
DX: S42.021D Displaced fracture of shaft of right clavicle, subsequent encounter for fracture with routine healing (principal)
CPT/HCPCS: 73000

== ENCOUNTER 2021-01-16 09:17 | Outpatient (CLI) | payer BC, SELFPAY ==
--- NOTE | 2021-01-16 08:15 | DI.RAD_ITS ---
Exam(s) XR CLAVICLE RT EXAM: XR CLAVICLE RT CLINICAL HISTORY: follow up. TECHNIQUE: 2D digital imaging was performed. COMPARISON: CR XR CLAVICLE RT from 11/07/2020 CR XR CLAVICLE RT from 12/12/2020 FINDINGS: The appearance of the comminuted midshaft fracture site in the right clavicle is unchanged. AC joint is not distracted. IMPRESSION: DATA REPOSITORY: RADIATION DOSE DELIVERED:
== END 2021-01-16 09:18 | disposition home or self-care (01) ==
LOC: DIORS 09:17
PROVIDERS: PCP Family Medicine; Referring Provider Family Medicine; Visit Provider Physician Assistant Surgical
DX: S42.021D Displaced fracture of shaft of right clavicle, subsequent encounter for fracture with routine healing (principal); X58.XXXD Exposure to other specified factors, subsequent encounter
CPT/HCPCS: 73000

== ENCOUNTER 2021-03-06 14:34 | Outpatient (CLI) | payer BC, SELFPAY ==
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
== END 2021-03-06 14:35 | disposition home or self-care (01) ==
LOC: DIORS 14:35
PROVIDERS: PCP Family Medicine; Visit Provider Student in an Organized Health Care Education/Training Program
DX: S42.021D Displaced fracture of shaft of right clavicle, subsequent encounter for fracture with routine healing (principal); X58.XXXD Exposure to other specified factors, subsequent encounter
CPT/HCPCS: 73000

== ENCOUNTER 2021-08-03 19:53 | Emergency (ER) | payer SELFPAY ==
[2021-08-03 20:02] VITALS: BP 143/82; PULSE 100; RESP 18; TEMP 37; O2SAT 98
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
[2021-08-03 21:15] LABS: Abs Immature Grans 0.03 10^3/uL (0.0-0.06); Absolute Basophil Count 0.03 10^3/uL (0.0-0.2); Absolute Eosinophil Count 0.03 10^3/uL (0.0-0.7); Absolute Lymphocyte Count 0.76 10^3/uL (1.2-3.4); Absolute Neutrophil Count 7.94 10^3/uL (1.2-6.7); Basophils % 0.3; Eosinophils % 0.3; HCT 49.6 % (40.0-50.0); HGB 16.7 g/dL (13.5-17.5); Immature Grans % 0.3; Lymphocytes % 7.8; MCH 29.2 pg (27.0-33.0); MCHC 33.7 % (32.0-36.0); MCV 86.7 fL (80-95); MPV 9.9 fL (8.0-11.0); Monocytes % 10.2; Neutrophils % 81.1; Nucleated RBC 0 %; Platelet Count 168 10^3/uL (130-400); RBC 5.72 10^6/uL (4.36-5.78); RDW-SD 38.6 fL; WBC 9.79 10^3/uL (4.4-10.8)
[2021-08-03] MEDS: Normal Saline 1,000 ML 1000 ML IV (21:16)
[2021-08-03] MEDS: Ondansetron O.D.T. 4 MG TABEF PO (21:16)
[2021-08-03] MEDS: Ketorolac 15 MG/ML VIAL IVP (21:16)
[2021-08-03 21:30] LABS: ALT 17 U/L (16-63); AST 17 U/L (15-37); Alkaline Phosphatase 60 U/L (46-116); Anion Gap 10.4 mmol/L (3-11); BUN 26 mg/dL (7-18); Bilirubin, Total 0.6 mg/dL (0.2-1.0); CO2 25.6 mmol/L (21.0-32.0); CREATININE 1.4 mg/dL (0.70-1.30); Calcium 8.8 mg/dL (8.5-10.1); Chloride 96 mmol/L (98-107); Glucose 97 mg/dL (74-106); Lipase 65 U/L (73-393); Magnesium 2.1 mg/dL (1.8-2.4); Potassium 3.5 mmol/L (3.5-5.1); Sodium 132 mmol/L (136-145); Total Protein 8.6 g/dL (6.4-8.2)
[2021-08-05 10:11] LABS: COVID-19 RT-PCR UVMMC Result Negative (Negative)
== END 2021-08-03 22:13 | disposition home or self-care (01) ==
PROVIDERS: Emergency Provider Nurse Practitioner Family; PCP Family Medicine
DX: R11.2 Nausea with vomiting, unspecified (principal); R51.9 Headache, unspecified; R05.1 Acute cough; R53.83 Other fatigue; Z20.822 Contact with and (suspected) exposure to COVID-19; B34.9 Viral infection, unspecified
CPT/HCPCS: 80053; 83690; 87449; 96361; 96374; 99284; U0003; 83735; 85025; 99283; J1885

== ENCOUNTER 2022-05-08 18:13 | Emergency (ER) | payer SELFPAY ==
[2022-05-08 18:18] VITALS: BP 138/89; PULSE 83; RESP 18; TEMP 37.1; O2SAT 100
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
[2022-05-08 19:16] LABS: Abs Immature Grans 0.04 10^3/uL (0.0-0.06); Absolute Lymphocyte Count 2.09 10^3/uL (1.2-3.4); Absolute Monocyte Count 0.77 10^3/uL (0.1-0.8); Basophils % 0.6; Eosinophils % 1.8; HCT 45.4 % (40.0-50.0); HGB 15.7 g/dL (13.5-17.5); Immature Grans % 0.4; Lymphocytes % 19.3; MCH 29.7 pg (27.0-33.0); MCHC 34.6 % (32.0-36.0); MCV 86 fL (80-95); MPV 10.2 fL (8.0-11.0); Monocytes % 7.1; Neutrophils % 70.8; Platelet Count 214 10^3/uL (130-400); RBC 5.29 10^6/uL (4.36-5.78); RDW 12.4 % (11.8-14.1); RDW-SD 38.8 fL; WBC 10.85 10^3/uL (4.4-10.8)
[2022-05-08] MEDS: Omnipaque 350 MG/ML 500 ML BTL-Imaging package IJ (19:17)
[2022-05-08 19:19] LABS: Absolute Basophil Count 0.07 10^3/uL (0.0-0.2); Absolute Neutrophil Count 7.68 10^3/uL (1.2-6.7)
--- NOTE | 2022-05-08 19:30 | DI.RAD_ITS ---
Exam(s) XR ELBOW LT COMPLETE EXAM: XR ELBOW LT COMPLETE CLINICAL HISTORY: fall. TECHNIQUE: 2D digital imaging was performed. COMPARISON: No exams were available for comparison FINDINGS: 3 views No evidence of fracture or joint effusion. There is some swelling over the proximal dorsal aspect of the forearm just distal to the olecranon bursa. No radiopaque foreign body at this level. Radial h ead and neck appear unremarkable as do the epicondyles. There is a caudal pointing exostoses incidentally noted off the anterior cortex in the distal half o f the humerus. This benign finding is known as a supracondylar process. IMPRESSION: No acute osseous findings. Dorsal soft tissue swelling which is probably trauma related. No foreign body at this level seen. Supracondylar process in the humerus incidentally noted, as described above. DATA REPOSITORY: RADIATION DOSE DELIVERED:
--- NOTE | 2022-05-08 19:30 | DI.RAD_ITS ---
Exam(s) XR WRIST LT COMPLETE EXAM: XR WRIST LT COMPLETE CLINICAL HISTORY: fall today. TECHNIQUE: 2D digital imaging was performed. COMPARISON: CR,XR XR WRIST LT COMPLETE from 07/09/2019 FINDINGS: 3 views No fracture or dislocation nor significant ulnar variance. Scaphoid and lunate and scapholunate dist ance normal. Bone density normal. No osseous lesions. No radiopaque foreign body. IMPRESSION: No significant osseous findings. DATA REPOSITORY: RADIATION DOSE DELIVERED:
[2022-05-08 19:32] LABS: ALT 40 U/L (16-63); AST 29 U/L (15-37); Albumin 4.6 g/dL (3.4-5.0); Alkaline Phosphatase 72 U/L (46-116); Anion Gap 8.3 mmol/L (3-11); BUN 24 mg/dL (7-18); Bilirubin, Total 0.3 mg/dL (0.2-1.0); CO2 28.7 mmol/L (21.0-32.0); CREATININE 1.2 mg/dL (0.70-1.30); Calcium 9.6 mg/dL (8.5-10.1); Chloride 103 mmol/L (98-107); Glucose 95 mg/dL (74-106); Lipase 88 U/L (73-393); Potassium 4.2 mmol/L (3.5-5.1); Sodium 140 mmol/L (136-145); Total Protein 8.5 g/dL (6.4-8.2)
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
--- NOTE | 2022-05-08 20:23 | DI.VRAD_ITS ---
PROCEDURE INFORMATION: Exam: CT Lumbar Spine Without Contrast Exam date and time: 05/08/2022 7:30 PM Age: 26 years old Clinical indication: Other: Fall 15 feet, pain TECHNIQUE: Imaging protocol: Computed tomography of the lumbar spine without contrast. Radiation optimization: All CT scans at this facility use at least one of these dose optimization techniques: automated exposure control; mA and/or kV adjustment per patient size (includes targeted exams where dose is matched to clinical indication); or iterative reconstruction. COMPARISON: No relevant prior studies available. FINDINGS: Bones/joints: No acute fracture. Normal alignment. Findings suggest mild broad-based posterior disc bulging at L4-L5 and L5-S1. No severe spinal canal stenosis. There are no degenerative changes. Soft tissues: Unremarkable. IMPRESSION: No acute fractures or subluxations identified. Dictated and Authenticated by: Dylan Romero MD. Ordering:SHANTE Triana MD
--- NOTE | 2022-05-08 20:28 | DI.VRAD_ITS ---
PROCEDURE INFORMATION: Exam: XR Chest Exam date and time: 05/08/2022 7:39 PM Age: 26 years old Clinical indication: Other: Fall 15 feet TECHNIQUE: Imaging protocol: Radiologic exam of the chest. Views: 2 views. COMPARISON: CT CHEST WO 10/23/2020 12:08 AM FINDINGS: Lungs: The lungs are clear. There is no pulmonary vascular congestion. Pleural spaces: There are no pleural effusions present. There is no evidence of pneumothorax. Heart/Mediastinum: The cardiomediastinal silhouette is within normal limits. Bones/joints: The prior right clavicle fracture now appears healed. The prior nondisplaced right 3rd-5th rib fractures are not visualized on this exam and have likely healed. No acute displaced rib fractures are identified. IMPRESSION: 1. No acute displaced rib fractures are identified. 2. Interval healing of the prior right clavicle fracture. Dictated and Authenticated by: Dylan Romero MD. Ordering:SHANTE Triana MD
--- NOTE | 2022-05-08 20:30 | DI.VRAD_ITS ---
PROCEDURE INFORMATION: Exam: XR Left Wrist Exam date and time: 05/08/2022 7:48 PM Age: 26 years old Clinical indication: Other: Fall today TECHNIQUE: Imaging protocol: Radiologic exam of the Left wrist. Views: 3 or more views. COMPARISON: CR XR WRIST LT COMPLETE 07/09/2019 1:08 AM FINDINGS: Bones/joints: Osseous mineralization is normal. There are no inflammatory osseous erosive changes. The joint spaces are maintained without degenerative changes. There are no acute displaced fractures or subluxations. No focal osseous lesions are identified. Soft tissues: Normal. IMPRESSION: No acute displaced fractures or subluxations identified. Dictated and Authenticated by: Dylan Romero MD. Ordering:SHANTE Triana MD
--- NOTE | 2022-05-08 20:33 | DI.VRAD_ITS ---
PROCEDURE INFORMATION: Exam: XR Left Elbow Exam date and time: 05/08/2022 7:49 PM Age: 26 years old Clinical indication: Other: Fall today TECHNIQUE: Imaging protocol: Radiologic exam of the Left elbow. Views: 3 or more views. COMPARISON: None. FINDINGS: Bones/joints: There is no evidence of a joint effusion. Osseous mineralization is normal. There are no inflammatory osseous erosive changes. The joint spaces are maintained without degenerative changes. There are no acute displaced fractures or subluxations. There is a 5 x 3 mm calcification extending from the anterior cortex of the distal left humeral diaphysis which may represent a tiny exostosis or sequela of chronic enthesopathy. Soft tissues: There may be mild soft tissue swelling dorsal to the olecranon which may be posttraumatic. IMPRESSION: No acute displaced fractures or subluxations identified. Dictated and Authenticated by: Dylan Romero MD. Ordering:SHANTE Triana MD
[2022-05-08 20:45] LABS: Bilirubin Negative (Negative); Blood Negative (Negative); Clarity Clear (Clear); Glucose Negative (Negative); Ketones Negative (Negative); Leukocyte Esterase Negative (Negative); Nitrite Negative (Negative); Urobilinogen 0.2 EU/dL (Up TO 0.2)
--- NOTE | 2022-05-08 20:49 | ED.GENADUL_ITS ---
Discharge Plan Disposition Patient Disposition: HOME Condition: Stable Discharge Details Clinical Impression: Elbow pain, left, Acute wrist pain, Pelvic pain, Fall Primary Care Provider: Oliver Renner ED Provider: Kamilah Griffin Home Meds and New Rx's Prescriptions: New cyclobenzaprine 10 mg tablet 10 mg PO TID PRNQty: 10 0RF Continued ibuprofen 800 mg tablet 800 mg PO Q8H PRN (Reason: pain/fever) Qty: 30 0RF Discharge Instructions Instructions: Fall Prevention (ED) Additional Instructions: Please follow-up with primary care physician in 1 week for persistent pain Take ibuprofen and Tylenol for pain control Take Flexeril as needed for musculoskeletal pain Repeat imaging with persistent pain greater than 1 week Return earlier should you have new or worsening complaints with persistent persistent headache, lightheadedness, nausea, vomiting, please do not operate a vehicle until you are cleared by your doctor Stand Alone Forms: Work Release Referrals: Oliver Renner DO [Primary Care Provider] - Discharge Data Discharge Date/Time-TO BE ENTERED AT DEPARTURE: 05/08/22 21:[address] head, cervical spine, abdomen and pelvis did not show evidence of acute abnormality per radiology interpretation my review Evidence of fracture on left elbow and left wrist Ibuprofen and Tylenol as needed for pain Tetanus up-to-date Medical Records Medical records reviewed: Yes I reviewed the patient's medical records. Lab Data Lab results reviewed: Yes I reviewed the patient's lab results. HPI General Date/Time Provider Initiated Documentation: 05/08/22 18:29 . HPI Narrative: This 26-year-old gentleman who is otherwise healthy presents with report of left hip, flank, pelvic pain, left forearm and elbow pain. 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 He is wearing a hard hat. He denies loss of consciousness. He has developed a headache approximately 40 minutes prior to arrival. Denies any chest pain or shortness of breath. He is otherwise reportedly healthy. His pain is exacerbated with movement and walking. Denies any history of coagulopathy. Related Data Home Medications Medication Instructions Recorded Confirmed ibuprofen 800 mg tablet 800 mg PO Q8H PRN pain/fever #30 08/02/21 05/08/22 tabs cyclobenzaprine 10 mg tablet 10 mg PO TID PRN #10 tabs 05/08/22 Previous Rx's Medication Instructions Recorded ibuprofen 800 mg tablet 800 mg PO Q8H PRN pain/fever #30 08/02/21 tabs cyclobenzaprine 10 mg tablet 10 mg PO TID PRN #10 tabs 05/08/22 Allergies Allergy/AdvReac Type Severity Reaction Status Date / Time amoxicillin [From Augmentin] Allergy Skin Rash Unverified 05/08/22 18:21 clavulanic acid Allergy Skin Rash Unverified 05/08/22 18:21 [From Augmentin] General Stated Complaint: Trauma TRICIA: 3 Review of Systems All systems reviewed & are unremarkable except as noted in HPI and below PFSH All Active Problems (Updated 05/08/22 @ 20:54 by NICK Worley) Elbow pain, left (Acute) Acute wrist pain (Acute) Pelvic pain (Acute) Fall (Acute) Suspected COVID-19 virus infection (Acute) Fracture of right clavicle (Acute 10/22/20) Medical History Ankle contusion Blunt chest trauma Blunt head trauma Family History Mother Heart disease Maternal Grandfather Heart disease Diabetes Social History Smoking/Tobacco Use Status: Never Smokeless tobacco user: other Second Hand Exposure: Yes (mother smokes) Smoking risk assessment performed?: Yes Alcohol Intake: current Alcohol Intake frequency: holidays/special occasions only Drug use: Occasionally Substance use type: marijuana Household members: family Education Level: high school current occupation: talking to [employer] Pets and animals: Yes Pets and animals: cat(s) and dog(s) Sexually active: Yes Do you think of yourself as: straight/heterosexual Current gender identity: male What type of physical activity do you participate in: other Details: bowling and physically active at work Ruth/Rastafarian: none Special ruth needs: No Seatbelt use: always Helmet use: Yes Helmet use: always Drive intox or ride w/intox trolley 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 Water heater temp set <120 deg: Yes Working smoke detector in home: Yes Fire extinguisher in home: Yes Carbon monox detector in home: Yes Firearms in home: No Do you feel safe at home: Yes Do you feel safe in your relationship?: Yes Exam Const General: cooperative, comfortable and no acute distress Orientation: alert and oriented x3 HENLA Head: normal to inspection Mouth: oral mucosae normal Other: No hemotympanum Eyes Pupils: PERRL Neck Other: No midline tenderness Resp Effort & Inspection: normal respiratory effort Other: No visible sign of trauma Cardio Rate: regular rate Rhythm: regular rhythm GI Inspection: normal to inspection Other: Left pelvic with tenderness, no visible evidence of trauma, no CVA tenderness Back/Spine/Pelvis Other: No midline tenderness Skin General skin exam: no rashes or lesions noted Neuro General: patient alert and patient oriented x3 Other: Strength and sensation intact, deep Extrem Other: Left elbow tenderness, small abrasion, no deformity noted, left wrist tenderness, abrasion, no deformity noted, neurovascularly intact, no left elbow tenderness, range of motion preserved Course Vital Signs Vital signs: Vital Signs Temperature 37.1 C 05/08/22 18:18 Pulse 83 05/08/22 18:18 Respiratory Rate 18 05/08/22 18:18 Blood Pressure 138/89 05/08/22 18:18 Pulse Oximetry 100 05/08/22 18:18 Temperature 37.1 C 05/08/22 18:18 Temperature Source Temporal Artery Scan 05/08/22 18:18 Pulse 83 05/08/22 18:18 Respiratory Rate 18 05/08/22 18:18 Respiratory Effort Non-Labored 05/08/22 19:10 Respiratory Depth Normal 05/08/22 19:10 Respiratory Pattern Normal 05/08/22 19:10 Blood Pressure 138/89 05/08/22 18:18 Blood Pressure Position Sitting 05/08/22 18:18 Pulse Oximetry 100 05/08/22 18:18 Oxygen Delivery Method Room Air 05/08/22 18:18 Oxygen Flow Rate 0 05/08/22 18:18 Pain Level 5 05/08/22 19:10 Lab/Test Results Lab/Test Results: Laboratory Tests Range/Units 05/08/22 05/08/22 05/08/22 19:07 19:07 19:07 WBC (4.4-10.8) 10^3/uL 10.85 H RBC (4.36-5.78) 10^6/uL 5.29 Hgb (13.5-17.5) g/dL 15.7 Hct (40.0-50.0) % 45.4 MCV (80-95) fL 86 MCH (27.0-33.0) pg 29.7 MCHC (32.0-36.0) % 34.6 RDW (11.8-14.1) % 12.4 Plt Count (130-400) 10^3/uL 214 MPV (8.0-11.0) fL 10.2 Immature Gran % 0.4 Neutrophils % 70.8 Lymphocytes % 19.3 Monocytes % 7.1 Eosinophils % 1.8 Basophils % 0.6 Nucleated RBC % (0.0-0.3) % 0.0 Absolute Neutrophils (1.2-6.7) 10^3/uL 7.68 H Absolute Lymphocytes (1.2-3.4) 10^3/uL 2.09 Absolute Monocytes (0.1-0.8) 10^3/uL 0.77 Absolute Eosinophils (0.0-0.7) 10^3/uL 0.20 Absolute Basophils (0.0-0.2) 10^3/uL 0.07 Sodium (136-145) mmol/L 140 Potassium (3.5-5.1) mmol/L 4.2 Chloride (98-107) mmol/L 103 Carbon Dioxide (21.0-32.0) mmol/L 28.7 Anion Gap (3-11) mmol/L 8.3 BUN (7-18) mg/dL 24 H Creatinine (0.70-1.30) mg/dL 1.2 Est GFR (CKD-EPI 2020) (mL/min/1.73m2) 86.60 Glucose (74-106) mg/dL 95 Calcium (8.5-10.1) mg/dL 9.6 Total Bilirubin (0.2-1.0) mg/dL 0.3 AST (15-37) U/L 29 ALT (16-63) U/L 40 Alkaline Phosphatase (46-116) U/L 72 Total Protein (6.4-8.2) g/dL 8.5 H Albumin (3.4-5.0) g/dL 4.6 Lipase (73-393) U/L 88 Urine Color (Yellow) Urine Clarity (Clear) Urine pH (5-8) Ur Specific [place] (1.005-1.025) Urine Protein (Negative) mg/dL Urine Ketones (Negative) mg/dL Urine Blood (Negative) Urine Nitrite (Negative) Urine Bilirubin (Negative) Urine Urobilinogen (Up TO 0.2) EU/dL Ur Leukocyte Esterase (Negative) Urine Glucose (Negative) mg/dL Patient ABO/Rh A Negative Antibody Screen NEGATIVE Range/Units 05/08/22 20:35 WBC (4.4-10.8) 10^3/uL RBC (4.36-5.78) 10^6/uL Hgb (13.5-17.5) g/dL Hct (40.0-50.0) % MCV (80-95) fL MCH (27.0-33.0) pg MCHC (32.0-36.0) % RDW (11.8-14.1) % Plt Count (130-400) 10^3/uL MPV (8.0-11.0) fL Immature Gran % Neutrophils % Lymphocytes % Monocytes % Eosinophils % Basophils % Nucleated RBC % (0.0-0.3) % Absolute Neutrophils (1.2-6.7) 10^3/uL Absolute Lymphocytes (1.2-3.4) 10^3/uL Absolute Monocytes (0.1-0.8) 10^3/uL Absolute Eosinophils (0.0-0.7) 10^3/uL Absolute Basophils (0.0-0.2) 10^3/uL Sodium (136-145) mmol/L Potassium (3.5-5.1) mmol/L Chloride (98-107) mmol/L Carbon Dioxide (21.0-32.0) mmol/L Anion Gap (3-11) mmol/L BUN (7-18) mg/dL Creatinine (0.70-1.30) mg/dL Est GFR (CKD-EPI 2020) (mL/min/1.73m2) Glucose (74-106) mg/dL Calcium (8.5-10.1) mg/dL Total Bilirubin (0.2-1.0) mg/dL AST (15-37) U/L ALT (16-63) U/L Alkaline Phosphatase (46-116) U/L Total Protein (6.4-8.2) g/dL Albumin (3.4-5.0) g/dL Lipase (73-393) U/L Urine Color (Yellow) Yellow Urine Clarity (Clear) Clear Urine pH (5-8) 7.0 Ur Specific [place] (1.005-1.025) 1.020 Urine Protein (Negative) mg/dL Negative Urine Ketones (Negative) mg/dL Negative Urine Blood (Negative) Negative Urine Nitrite (Negative) Negative Urine Bilirubin (Negative) Negative Urine Urobilinogen (Up TO 0.2) EU/dL 0.2 Ur Leukocyte Esterase (Negative) Negative Urine Glucose (Negative) mg/dL Negative Patient ABO/Rh Antibody Screen PAWSS Have you Been Recently Intoxicated or Drunk Within the Last 30 days?: No Have you Ever Experienced Previous Episodes of Alcohol Withdrawal?: No Have you ever Experienced Withdrawal Seizures?: No Have you ever Experienced Delirium Tremens(DT)s?: No Have you ever undergone Alcohol Rehabilitation Treatment (i.e, inpt ot outpatient treatment programs)?: No Have you ever Experienced Blackouts?: No Have you ever Combined Alcohol with other Downers within the last 90 days?: No Have you ever Combined Alcohol with any other Substance of Abuse during the last 90 days?: No Positive Blood Alcohol level on Presentation? [PCS.BAL]: No Evidence of Increased Autonomic Activity (i.e. HR>120, tremor, sweating, agitation, nausea)?: No Result: 0
[2022-05-08 21:06] VITALS: BP 123/61; PULSE 74; RESP 16; O2SAT 98
[2022-05-08] MEDS: Cyclobenzaprine 10 MG TAB, 3 TABS/BTL PO (21:07)
== END 2022-05-08 21:12 | disposition home or self-care (01) ==
PROVIDERS: Emergency Provider Physician Assistant; PCP Family Medicine
DX: S60.812A Abrasion of left wrist, initial encounter (principal); S50.312A Abrasion of left elbow, initial encounter; R10.2 Pelvic and perineal pain; G89.11 Acute pain due to trauma; W17.89XA Other fall from one level to another, initial encounter
CPT/HCPCS: 80053; 83690; 86850; 86900; 86901; 99285; 71046; 72131; 73080; 73110; 74177; 81003; 85025; 99284

== ENCOUNTER 2024-02-18 15:49 | Outpatient (REF) | payer BC, SELFPAY ==
[2024-02-22 12:09] LABS: GC Result Negative (Negative)
[2024-02-22 14:00] LABS: Chlamydia Result Positive (Negative)
== END 2024-02-18 15:50 | disposition home or self-care (01) ==
LOC: LBN 15:49
PROVIDERS: PCP Family Medicine; Visit Provider Nurse Practitioner Family
DX: Z20.2 Contact with and (suspected) exposure to infections with a predominantly sexual mode of transmission (principal)
CPT/HCPCS: 87491; 87591

== ENCOUNTER 2024-02-25 01:52 | Outpatient (CLI) | payer BC, SELFPAY ==
[2024-02-25 21:05] LABS: Hepatitis B Surface Ag Negative (Negative)
[2024-02-25 21:35] LABS: Hepatitis C Ab w Rflx HCV PCR Negative (Negative)
[2024-02-25 21:36] LABS: HIV-1/2 Ag & Ab Screen Negative (Negative)
[2024-02-26 12:33] LABS: Syphilis Serology (RPR) Negative (Negative)
== END 2024-02-25 01:53 | disposition home or self-care (01) ==
PROVIDERS: PCP Family Medicine; Referring Provider Family Medicine; Visit Provider Nurse Practitioner Family
DX: Z20.2 Contact with and (suspected) exposure to infections with a predominantly sexual mode of transmission (principal)
CPT/HCPCS: 36415; 86803; 87340; 87389; 86592